=== PATIENT | female | born 1960 | race Caucasian/White ===

== ENCOUNTER 2019-05-12 11:17 | Emergency (ER) | payer OTHER ==
[~2019-05-12] VITALS: Ht 167.6 cm; Wt 72.6 kg
[2019-05-12 11:39] VITALS: BP_SYST 120
--- NOTE | 2019-05-12 11:39 | NUR ---
Patient to ER bed 4 to gown for evaluation. Side rails up.
--- NOTE | 2019-05-12 11:40 | NUR ---
Patient presented to ER C/O shakiness. Patient A&Ox4, afebrile, skin pink and warm, pain 0/10, denies N/V/D, cast to left lower leg, wheelchair to ER. Patient states she has HX ESRD, diabetes types 2, last night jitteriness shakiness started and continued today prompting ER visit. HX includes CIPD, HTN, ESRD, diabetes type 2, dialysis M/W/F.
--- NOTE | 2019-05-12 11:58 | NUR ---
ER at bedside examining patient.
[2019-05-12] MEDS ORDERED: LORazepam 2 MG/ML VIAL IVP ONE (12:00)
[2019-05-12 12:27] LABS: BASOPHILS # (AUTO) 0.1 K/uL (0.0-0.2); BASOPHILS % (AUTO) 0.8 % (0.0-2.0); EOSINOPHILS # (AUTO) 0.1 K/uL (0.0-0.4); EOSINOPHILS % (AUTO) 2.1 % (0.0-4.0); HEMATOCRIT 34.2 % (36-48); HEMOGLOBIN 11.2 g/dL (12.0-16.0); LYMPHOCYTES % (AUTO) 15.2 % (20.5-51.5); MEAN CORPUSCULAR HEMOGLOBIN 32 pg (27-31); MEAN CORPUSCULAR HGB CONC 33 % (32-36); MEAN CORPUSCULAR VOLUME 99 fL (79.0-98.0); MONOCYTES # (AUTO) 0.4 K/uL (0.0-1.0); MONOCYTES % (AUTO) 6.4 % (1.7-9.3); NEUTROPHILS # (AUTO) 5.2 K/uL (1.8-7.7); NEUTROPHILS % (AUTO) 75.5 % (40.0-70.0); PLATELET COUNT (AUTO) 177 K/uL (130-430); RED BLOOD CELL COUNT(AUTO) 3.45 MIL/uL (4.2-6.2); RED CELL DISTRIBUTION WIDTH 17.9 % (9.0-15.0); WHITE BLOOD COUNT (AUTO) 6.9 K/uL (4.8-10.8)
--- NOTE | 2019-05-12 12:30 | NUR ---
Report to [facility]
[2019-05-12 12:41] LABS: CALCIUM 8.5 mg/dL (8.4-11.0); CREATININE 4.7 mg/dL (0.55-1.30); POTASSIUM 4.8 mmol/L (3.5-5.1)
[2019-05-12 12:58] LABS: ALBUMIN 3.2 g/dL (3.4-4.8); TOTAL BILIRUBIN 0.3 mg/dL (0.0-1.0)
[2019-05-12 13:08] VITALS: BP_SYST 128
--- NOTE | 2019-05-12 13:09 | NUR ---
Patient given written and verbal discharge instructions and verbalizes understanding. ER MD discussed with patient the results and treatment provided. Patient in stable condition. ID arm band removed. IV catheter removed intact and dressing applied, no active bleeding. No Rx given. Patient educated on pain management and to follow up with PMD. Pain Scale 0/10 . Opportunity for questions provided and answered.
== END 2019-05-12 13:08 | disposition home or self-care (01) ==
LOC: SED 11:17
DX: T42.4X1A Poisoning by benzodiazepines, accidental (unintentional), initial encounter (principal); R25.8 Other abnormal involuntary movements; Z88.2 Allergy status to sulfonamides; Y92.89 Other specified places as the place of occurrence of the external cause
CPT/HCPCS: 36415; 80053; 82962; 85025; 96374; 99283; J2060